=== PATIENT | female | born 1965 | race Caucasian/White ===

== ENCOUNTER 2020-06-16 21:17 | Emergency (ER) | payer MEDICARE, OTHER ==
[~2020-06-16] VITALS: Ht 162.6 cm; Wt 65.0 kg
[~2020-06-16 21:17] MED LIST: PANT-47 PO
[2020-06-17] MEDS ORDERED: ondansetron/PF 4mg/2ml inj IV ONE (00:45)
[2020-06-17 01:34] LABS: BASOPHILS # (AUTO) 0.2 X10'3 (0-0.2); BASOPHILS % (AUTO) 1.5 % (0-1); EOSINOPHILS # (AUTO) 0.2 X10'3 (0-0.9); EOSINOPHILS % (AUTO) 1.6 % (0-6); HEMATOCRIT 40.3 % (35.0-45.0); LYMPHOCYTES # (AUTO) 0.7 X10'3 (1.1-4.8); LYMPHOCYTES % (AUTO) 6.7 % (21-51); MEAN CORPUSCULAR HEMOGLOBIN 36.1 PG (27.0-31.0); MEAN CORPUSCULAR HGB CONC 34.7 g/dL (33.0-36.5); MEAN PLATELET VOLUME 6.3 FL (7.4-10.4); MONOCYTES # (AUTO) 0.8 X10'3 (0-0.9); MONOCYTES % (AUTO) 7.8 % (2-12); NEUTROPHILS # (AUTO) 8.3 X10'3 (1.8-7.7); NEUTROPHILS % (AUTO) 82.4 % (42-75); PLATELET COUNT 163 X10'3 (140-440); RED BLOOD COUNT 3.88 X10'6 (4.20-5.60); RED CELL DISTRIBUTION WIDTH 15.7 % (11.5-14.5); WHITE BLOOD COUNT 10.1 X10'3 (4.5-11.0)
[2020-06-17 01:41] LABS: ALANINE AMINOTRANSFERASE 42 U/L (12-78); ALBUMIN 3.2 G/DL (3.4-5.0); ALKALINE PHOSPHATASE 244 IU/L (46-116); ANION GAP 13 (8-16); ASPARTATE AMINO TRANSFERASE 177 U/L (10-37); BILIRUBIN,TOTAL 8.7 MG/DL (0.1-1.0); BLOOD UREA NITROGEN 2 MG/DL (7-18); BUN/CREATININE RATIO 2.5 (6.6-38.0); CALCIUM 8.7 MG/DL (8.5-10.1); CHLORIDE 92 MMOL/L (99-107); CREATININE 0.79 MG/DL (0.40-0.90); GLUCOSE 126 MG/DL (70-104); LIPASE 752 U/L (73-393); SODIUM 133 MMOL/L (135-145); TOTAL CARBON DIOXIDE 27.9 MMOL/L (24-32); TROPONIN I < 0.04 NG/ML (0.0-0.05); eGFR 76 ML/MIN
[2020-06-17 01:46] LABS: CLARITY,URINE CLEAR (Clear); COLOR,URINE YELLOW (Yellow); GLUCOSE, URINE NEGATIVE (Neg); KETONES,URINE 40 mg/dl (Neg); LEUKOCYTE ESTERASE ,URINE NEGATIVE (Neg); NITRITES, URINE NEGATIVE (Neg); OCCULT BLOOD,URINE NEGATIVE (Neg); PH,URINE 6.5 (4.8-8.0); PROTEIN,URINE NEGATIVE (Neg)
[2020-06-17 01:47] LABS: ALBUMIN/GLOBULIN RATIO 0.9 (1.1-1.5); TOTAL PROTEIN 6.9 G/DL (6.4-8.2)
[2020-06-17 01:49] LABS: POTASSIUM 2.5 MMOL/L (3.5-5.1)
[2020-06-17] MEDS ORDERED: potassium Cl 20 mEq SR tablet PO STA (01:50)
[2020-06-17] MEDS ORDERED: magnesium 2GM in 50ml NS 50 ML IV ONE (01:50)
[2020-06-17] MEDS ORDERED: potassium Cl 10 mEq/100mL bag IV ONE (01:50)
[2020-06-17 01:53] LABS: UA COLLECTION TYPE CLN CATCH MIDSTREAM
[2020-06-17] MEDS ORDERED: dextrose 5%-normal saline 1,000 ML IV ONE (01:55)
[2020-06-17] MEDS ORDERED: normal saline 1000ml 1,000 ML IV ONE (01:55)
[2020-06-17] MEDS ORDERED: SPIR25TA5 PO (02:19)
[2020-06-17] MEDS ORDERED: FURO-150 PO (02:19)
[2020-06-17] MEDS ORDERED: METH500T6 PO (02:21)
[2020-06-17] MEDS ORDERED: PANT20TA3 PO (02:21)
[2020-06-17] MEDS ORDERED: AMYL1CAP57 PO (02:21)
[2020-06-17] MEDS ORDERED: OMEP-50 PO (02:21)
[2020-06-17 03:25] LABS: ETHANOL < 0.010 GM/DL (0.0-0.010)
[2020-06-17 03:35] LABS: URINE AMPHETAMINE SCREEN NEGATIVE (Neg); URINE BARBITUATE SCREEN NEGATIVE (Neg); URINE BENZODIAZEPINES SCREEN NEGATIVE (Neg); URINE CANNABINOID SCREEN NEGATIVE (Neg); URINE COCAINE SCREEN NEGATIVE (Neg); URINE METHADONE SCREEN NEGATIVE (Neg); URINE OPIATE SCREEN NEGATIVE (Neg); URINE PHENCYCLIDINE SCREEN NEGATIVE (Neg)
[2020-06-17 03:47] VITALS: BP 99/58
[2020-06-17] MEDS ORDERED: POTA20TA19 PO (03:54)
== END 2020-06-17 04:07 | disposition home or self-care (01) ==
LOC: ER 21:18
DX: E87.6 Hypokalemia (principal); R11.2 Nausea with vomiting, unspecified; R42 Dizziness and giddiness; R10.84 Generalized abdominal pain; G43.909 Migraine, unspecified, not intractable, without status migrainosus; Z90.89 Acquired absence of other organs; Z98.51 Tubal ligation status; Z72.89 Other problems related to lifestyle; Z88.0 Allergy status to penicillin; Z88.6 Allergy status to analgesic agent; Z79.899 Other long term (current) drug therapy
CPT/HCPCS: 36415; 71045; 80053; 80305; 80320; 81003; 82140; 83605; 83690; 84484; 85025; 93005; 96365; 96368; 96375; 99285; J2405; J3475; J3480; J7042

== ENCOUNTER 2021-02-12 21:12 | Emergency (ER) | payer MEDICAID ==
[~2021-02-12] VITALS: Ht 162.6 cm; Wt 135.0 kg
[~2021-02-12 21:12] MED LIST changes: +AMYL1CAP57 PO; +FURO-150 PO; +METH-797 PO; +OMEP-50 PO; -PANT-47 PO; +PANT20TA18 PO; +SPIR25TA5 PO
[2021-02-12 21:55] LABS: BASOPHILS # (AUTO) 0.1 X10'3 (0-0.2); BASOPHILS % (AUTO) 1.4 % (0-1); EOSINOPHILS % (AUTO) 0.1 % (0-6); HEMATOCRIT 33.6 % (35.0-45.0); HEMOGLOBIN 11.2 g/dl (12.0-16.0); LYMPHOCYTES # (AUTO) 0.5 X10'3 (1.1-4.8); MEAN CORPUSCULAR HEMOGLOBIN 35.1 PG (27.0-31.0); MEAN CORPUSCULAR HGB CONC 33.3 g/dL (33.0-36.5); MEAN CORPUSCULAR VOLUME 105.5 FL (78-98); MEAN PLATELET VOLUME 7.1 FL (7.4-10.4); MONOCYTES # (AUTO) 0.4 X10'3 (0-0.9); MONOCYTES % (AUTO) 7.1 % (2-12); NEUTROPHILS # (AUTO) 4.8 X10'3 (1.8-7.7); NEUTROPHILS % (AUTO) 83.4 % (42-75); PLATELET COUNT 62 X10'3 (140-440); RED BLOOD COUNT 3.18 X10'6 (4.20-5.60); RED CELL DISTRIBUTION WIDTH 18.3 % (11.5-14.5); WHITE BLOOD COUNT 5.7 X10'3 (4.5-11.0)
[2021-02-12 22:04] LABS: ALANINE AMINOTRANSFERASE 72 U/L (12-78); ALBUMIN 3.1 G/DL (3.4-5.0); ALKALINE PHOSPHATASE 175 IU/L (46-116); ANION GAP 16 (8-16); ASPARTATE AMINO TRANSFERASE 323 U/L (10-37); BILIRUBIN,TOTAL 7.9 MG/DL (0.1-1.0); BLOOD UREA NITROGEN 4 MG/DL (7-18); BUN/CREATININE RATIO 7.1 (6.6-38.0); CALCIUM 7.4 MG/DL (8.5-10.1); CHLORIDE 100 MMOL/L (99-107); CREATININE 0.56 MG/DL (0.40-0.90); GLUCOSE 177 MG/DL (70-104); LIPASE 970 U/L (73-393); SODIUM 140 MMOL/L (135-145); TOTAL CARBON DIOXIDE 23.7 MMOL/L (24-32); eGFR > 90 ML/MIN
[2021-02-12] MEDS ORDERED: pantoprazole 40 MG vial IV ONE (22:30)
[2021-02-12] MEDS ORDERED: famotidine/PF 10 mg/ml inj IV ONE (22:30)
[2021-02-12] MEDS ORDERED: ketorolac trometh. 30mg/ml inj. IV ONE (22:30)
[2021-02-12] MEDS ORDERED: ondansetron/PF 4mg/2ml inj IV ONE (22:30)
[2021-02-12] MEDS ORDERED: proCHLORperazine 10 MG/2 ml inj IV ONE (22:30)
[2021-02-12] MEDS ORDERED: normal saline 1000ml 1,000 ML IV ONE (22:30)
[2021-02-12] MEDS ORDERED: SUMAtriptan succ. 6 MG/0.5ml vial SQ ONE (22:30)
[2021-02-12 22:35] LABS: ALBUMIN/GLOBULIN RATIO 1.1 (1.1-1.5)
[2021-02-12 22:45] LABS: POTASSIUM 3.6 MMOL/L (3.5-5.1)
[2021-02-12 22:59] LABS: ETHANOL 0.315 GM/DL (0.0-0.010)
[2021-02-12 23:06] LABS: CLARITY,URINE SLIGHTLY CLOUDY (Clear); COLOR,URINE YELLOW (Yellow); GLUCOSE, URINE NEGATIVE (Neg); KETONES,URINE NEGATIVE (Neg); LEUKOCYTE ESTERASE ,URINE MODERATE (Neg); NITRITES, URINE NEGATIVE (Neg); OCCULT BLOOD,URINE NEGATIVE (Neg); PH,URINE 5.5 (4.8-8.0); PROTEIN,URINE NEGATIVE (Neg)
[2021-02-12 23:13] LABS: UA COLLECTION TYPE CLN CATCH MIDSTREAM
[2021-02-12 23:18] LABS: URINE AMPHETAMINE SCREEN NEGATIVE (Neg); URINE BARBITUATE SCREEN NEGATIVE (Neg); URINE BENZODIAZEPINES SCREEN NEGATIVE (Neg); URINE CANNABINOID SCREEN NEGATIVE (Neg); URINE COCAINE SCREEN NEGATIVE (Neg); URINE METHADONE SCREEN NEGATIVE (Neg); URINE OPIATE SCREEN NEGATIVE (Neg); URINE PHENCYCLIDINE SCREEN NEGATIVE (Neg)
[2021-02-12 23:19] LABS: BACTERIA,URINE 3+ /HPF (Neg); RBC,URINE 0-2 /HPF (0-2); SQUAMOUS EPITHELIAL CELL,UR MODERATE /LPF (FEW); WBC,URINE 0-4 /HPF (0-4)
[2021-02-12 23:20] LABS: HYALINE CASTS 0-3 /LPF (NEGATIVE)
[2021-02-12 23:52] VITALS: BP 112/76
== END 2021-02-12 23:56 | disposition home or self-care (01) ==
LOC: ER 21:13
DX: K86.1 Other chronic pancreatitis (principal); F10.129 Alcohol abuse with intoxication, unspecified; R11.2 Nausea with vomiting, unspecified; R10.10 Upper abdominal pain, unspecified; G43.909 Migraine, unspecified, not intractable, without status migrainosus; Z90.89 Acquired absence of other organs; Z98.51 Tubal ligation status; Z72.89 Other problems related to lifestyle; Z88.0 Allergy status to penicillin; Z88.6 Allergy status to analgesic agent; Z79.899 Other long term (current) drug therapy
CPT/HCPCS: 36415; 80053; 80305; 80320; 81001; 83690; 85025; 87088; 96361; 96372; 96374; 96375; 99284; C9113; J0780; J1885; J2405; J3490; J7030; 87077; 87186; J3030